=== PATIENT | female | born 1940 | race Caucasian/White ===

== ENCOUNTER → 2016-08-07 | Outpatient (CLI) | payer MEDICARE ==
[~2016-08-07] MED LIST: IOHEXOL 240 MG/ML 50ML VIAL. ONE; IOHEXOL 300 MG/ML 75 ML VIAL. IV ONE
--- NOTE | 2016-08-07 10:35 | RAD ---
Indication microscopic hematuria. Axial images through the abdomen and pelvis were obtained. IV contrast, approximately 75 cc of Omnipaque 300 was administered intravenously. Oral contrast was also administered. Note is made of a previous examination 11/17/2011. The lung bases are unremarkable. The liver and spleen appear unremarkable. Known cholelithiasis is reproduced. The pancreas and adrenal glands appear normal. There is a 1.5 cm right renal cyst similar to the previous exam. A significant finding is not seen associated with either kidney. The ureters appear unremarkable. The urinary bladder appears grossly normal. No acute finding is seen in the abdomen. 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 Maximum AP dimension is approximately 2.8 cm. Occasional diverticula are seen associated with the large bowel. No active inflammation is seen. An acute finding in the pelvis is is not apparent. There are degenerative changes in the lumbar spine. Scoliosis is additionally noted. IMPRESSION: No acute finding seen in the abdomen or pelvis. Right renal cyst. PQRS Compliance Statement: One or more of the following individualized dose reduction techniques were utilized for this examination: 1. Automated exposure control 2. Adjustment of the mA and/or kV according to patient size 3. Use of iterative reconstruction technique
== END | disposition home or self-care (01) ==
LOC: CT 08:23
PROVIDERS: ATTEND Family Medicine
DX: N28.1 Cyst of kidney, acquired (principal)
CPT/HCPCS: 74177; Q9966; Q9967